=== PATIENT | male | born 1975 | race Caucasian/White ===

== ENCOUNTER 2019-07-29 17:22 | Emergency (ER) | payer MEDICARE, MEDICAID, SELFPAY ==
[2019-07-29 17:22] VITALS: BP 135/94; PULSE 128; RESP 18; TEMP 36.5; O2SAT 98; BMI 25.0
--- NOTE | 2019-07-29 18:04 | EKG12_ITS ---
Test Reason : Blood Pressure : / mmHG Vent. Rate : 113 BPM Atrial Rate : 113 BPM P-R Int : 140 ms QRS Dur : 084 ms QT Int : 316 ms P-R-T Axes : 037 045 050 degrees QTc Int : 433 ms Sinus tachycardia Otherwise normal ECG Confirmed by LUIS E MACK ([id number]), editor trade journal ELOINA ELLIOTT ([id number]) on 08/06/2019 1:26:13 PM Referred By: Confirmed By:LUIS E MACK
--- NOTE | 2019-07-29 18:09 | NURSING ---
NO OLD EKGS
[2019-07-29 18:22] VITALS: RESP 16
[2019-07-29 18:24] LABS: Absolute Lymphocyte Count 2.03 X10^3/uL (0.83-4.51); Absolute Neutrophil Count 6.8 X10^3/uL (2.0-7.7); Basophil# 0.06 X10^3/uL; Basophil% 0.6 % (0-1); Eosinophil# 0.07 X10^3/uL; Eosinophils% 0.7 % (0-5); Hematocrit 42.6 % (40-54); Hemoglobin 14.6 g/dL (13.0-16.5); Lymphocyte # 2.03 X10^3/ul (4.0); Lymphocyte % 20.9 % (19-41); Mean Corp Hgb Conc 34.3 g/dL (32-36); Mean Corpuscular Hgb 29.7 pg (27.0-32.0); Mean Corpuscular Volume 86.8 fL (80-94); Mean Platelet Vol. 9.9 fl (6.2-12.0); Monocyte# 0.68 X10^3/uL; NRBC Flagged by Analyzer 0 % (0-5); Neutrophil # 6.83 X10^3/uL (2.7-7.7); Neutrophil % 70.5 % (47-70); Platelet Count 371 K/mm3 (150-450); RBC Distribution Width CV 13.6 % (11.6-14.6); RBC Distribution Width SD 43.6 fl (35.1-43.9); Red Blood Count 4.91 M/mm3 (4.6-6.2); White Blood Count 9.7 K/mm3 (4.4-11.0)
[2019-07-29 18:42] LABS: AST(SGOT) 19 U/L (15-37); Alanine Aminotransfer ALT/SGPT 22 U/L (16-61); Albumin, Serum 3.9 g/dL (3.2-5.0); Alkaline Phosphatase 85 U/L (45-117); Anion Gap 9 (5-15); BUN 10 mg/dL (7-18); BUN/Creat Ratio 8.7 RATIO (10-20); Calcium,Total 9.4 mg/dL (8.5-10.1); Chloride 106 mmol/L (98-107); Creatinine, Serum 1.15 mg/dL (0.70-1.30); EST Glomerular Filtration Rate 74 mL/min (>60); Est Glom Filt Rate - Afr Amer 90 mL/min (>60); Estimated Creatinine Clearance 78.23 ml/min; Globulin 3.8 g/dL (2.2-4.2); Glucose 137 mg/dL (74-106); Potassium 4.4 mmol/L (3.5-5.1); Protein, Total 7.7 g/dL (6.4-8.2); Sodium Level 138 mmol/L (136-145)
[2019-07-29 18:58] LABS: Alcohol, Blood (Medical)-Serum < 3.0 mg/dL
[2019-07-29 19:02] LABS: Amphetamine Urine VISTA NEGATIVE (<1000 ng/mL); Barbiturate Urine VISTA NEGATIVE (< 200 ng/mL); Benzodiazepine Urine VISTA NEGATIVE (< 200 ng/mL); Cocaine Urine VISTA NEGATIVE (< 300 ng/mL); Ecstacy Urine VISTA NEGATIVE (< 500 ng/mL); Methadone Urine VISTA NEGATIVE (< 300 ng/mL); PCP Urine VISTA NEGATIVE (< 25 ng/mL); THC Urine VISTA POSITIVE (< 50 ng/mL); Vista UDS pH Range 5
[2019-07-29 19:36] LABS: Acetaminophen (Tylenol) Level < 2.0 ug/mL (10.0-30.0); Salicylate 2.8 mg/dL (2.8-20.0)
[2019-07-29 20:52] VITALS: PULSE 102; RESP 18; O2SAT 97
--- NOTE | 2019-07-29 20:52 | CM.ED ---
Social Work Referral: Overdose/attempted to complete suicide. Informant: Dr. Rizvi Chief Complaint: Everything is crap in life. Patient stating to have been overwhelmed and became angry today and took two hand fulls of pills. Patient took Chlorpromazine. Marital/Social history: Single Living Situation: Was living with friend, Marci but is now reporting to be homeless as of today as Marci is communicating to patient to not be able to handle me. Support/Resources: [facility]. No children and does not identify any friends for support. history: None Education and Employment history: Unemployed. 10th grade education. Mental health Treatment/History: History of inpatient stay at [facility] some time ago. Patient stating to be diagnosed with schizophrenia and bi-polar. Patient sees a psychiatrist at [facility] and has next appointment on Aug.12. Patient denies any current counseling services. Abuse Issues: Denies Substance Abuse History: Patient stating to smoke 2 1/2 pack of tobacco per a day. Patient stating to use THC x1/weekly on average. Patient denies any other substance abuse/use. Risk to Self/Others: Patient confirming to have had thoughts of completing suicide today and that is why patient took the pills. Patient stating to have attempted to end patient life. Patient stating to have had at least 2 other suicide attempts in the past in which patient took pills and also attempted to hang self. Patient stating that the rope broke when patient tried to hand self. Patient stating that THC does help patient with patient anxiety. Patient with limited support and active suicidal thoughts with plan. Collaborating with Dr. Rizvi. Recommending inpatient psychiatric placement. Per Dr. Rizvi patient will need to be medically observed until 9:30pm to confirm medical clearance. Will make appropriate referrals when able. Mario Kelley MSW, [place]
--- NOTE | 2019-07-29 21:51 | ED.DCSUM_ITS ---
- ER Visit Summary Date of Service: 07/29/19 Chief Complaint: Suicide attempt History of Present Illness: The patient is a 44 M who presents with a suicide attempt that occurred tonight. Patient states he took a couple handfuls of Thorazine. Patient states he took the pills approximate 1 hour prior to a rrival. Patient states he wants to kill himself. Patient states he lost everything. Patient states he has been feeling depressed. Patient states he has had suicide attempts in the past. Patient denies any chest pain. Patient denies any shortness of breath. Patient denies any visual changes. Patient denies any nausea or vomiting. Physical Examination: Vital signs are stable except for mild tachycardia of 128. Patient is afebrile. Patient is in no acute distress. Oral mucosa is pink and moist. Neck is supple. Trachea is midline. There is no JVD noted. Heart was regular mildly tachycardic. Lungs are clear and equal bilateral. Abdomen is soft. Bowel sounds are normal. There is no tenderness. There is no guarding noted. Skin is warm dry. Cranial nerves II through XII are intact. There are no focal motor or sensory deficits noted. Test Results: EKG showed sinus tachycardia with a rate of 113. There are no acute ST or T wave changes. QTc is 433. QRS is normal at 84. CBC and comprehensive metabolic profile were obtained and were within normal limits. Urine tox screen positive for cannabinoids. Acetaminophen and salicylate levels were normal. Serum alcohol level was negative. Emergency Department Course and Treatment: Case was discussed with poison control. They recommended observing the patient for 4 to 6 hours. If the patient remains asymptomatic at that time he should be cleared from the overdose for psychiatry. Patient still feels suicidal on reevaluation. Patient's heart rate is improving. Patient is feeling better. Patient is still having suicidal thoughts. Case was discussed with social work. She was in to evaluate the patient and will attempt to have the patient placed in a psychiatric facility. [place] slip was placed on the chart. Psychiatric facility will not accept the patient until he has been observed for 30 hours because of the half-life of the Thorazine. Patient will be observed here in the emergency department. Disposition: Transfer to psychiatric facility Impression: Depression with suicidal attempt This note was generated with [employer] dictation software. It may contain incorrect words, spelling, and punctuation that were not noted in review of the chart prior to signing ED Disposition - Plan for ED Patient: Disposition: Psychiatric Hospital or Unit Diagnosis: Suicide attempt by drug overdose Referrals: Care Physician,No Primary [Primary Care Provider] -
--- NOTE | 2019-07-29 22:15 | CM.ED ---
Social Work Patient medically cleared per Dr. Rizvi. Telephone call [facility] as this is the facility that will accept patient insurance. Per [place] the half life of Chlorpromazine is 30 hours and the doctor will not look at the referral until after that time period. [facility] does accept patient insurance. This social studies department chair did attempt possible placement at other facilities but patient insurance is not accepted. Updated Dr. Rizvi on all above information. Patient to continue with medical observation. Tentative plan: Referral to be made to [facility] after 30 hour period. Mario Kelley MSW, [place]
[2019-07-29 23:00] VITALS: PULSE 89; RESP 16; O2SAT 97
[2019-07-30] VITALS (13 sets, daily range): BP systolic 109–135; BP diastolic 62–79; PULSE 65–88; RESP 15–17; TEMP 36.6; O2SAT 96–99
--- NOTE | 2019-07-30 01:09 | ED.RN ---
poison control called and updated on patients condition. per poison control as long as patients mental condition and vitals remain stable patient can be medically cleared per them. per poison control peak level is 6 hours. patient will be seen by crisis in am and seen by crisis or social work
--- NOTE | 2019-07-30 10:19 | CM.ED ---
SOCIAL WORK CALL TO [facility]. UPDATED ON REFERRAL AND PATIENT'S STATUS. REFERRAL FAXED AT THIS TIME. NELLIE SCHMITT, SENIOR RELIABILITY ENGINEER, QUALITY CONTROL REPRESENTATIVE.
--- NOTE | 2019-07-30 11:31 | CM.ED ---
SOCIAL WORK RECEIVED CALL FROM [facility] CALL [facility], SPOKE WITH SHANE. INFORMED PATIENT IS ACCEPTED. REQUESTING COPY OF PINK SLIP. UPDATED STAFF AND DR. SINCLAIR. NELLIE SCHMITT, PLATE COLORER, PAINTER MIRROR.
--- NOTE | 2019-07-30 11:57 | CM.ED ---
SOCIAL WORK PINK SLIP FAXED TO [facility]. AWAITING CALL BACK ONCE RECEIVED. NELLIE SCHMITT, PULP OPERATOR, SMALL PIECE CUTTER.
--- NOTE | 2019-07-30 12:23 | CM.ED ---
SOCIAL WORK CALL TO [facility], SPOKE WITH SHANE. PER SHANE, PATIENT HAS BEEN ACCEPTED TO [facility] BY DR. RUTH. REPORT TO BE CALLED TO . STAFF UPDATED. NELLIE SCHMITT, LIGHTING EQUIPMENT OPERATOR, FRESCO ARTIST.
== END 2019-07-30 14:42 ==
PROVIDERS: Emergency Provider Emergency Medicine
DX: T43.3X2A Poisoning by phenothiazine antipsychotics and neuroleptics, intentional self-harm, initial encounter (principal); R00.0 Tachycardia, unspecified; Y92.9 Unspecified place or not applicable; F32.9 Major depressive disorder, single episode, unspecified; F12.90 Cannabis use, unspecified, uncomplicated; Z91.5 Personal history of self-harm; Z72.0 Tobacco use
CPT/HCPCS: 80053; 80307; 80320; 80329; 85025; 93005; 99284; G0480